=== PATIENT | female | born 1950 | race Caucasian/White ===

== ENCOUNTER 2019-05-31 17:35 | Emergency (ER) | payer MEDICARE, OTHER ==
[~2019-05-31] VITALS: Ht 154.9 cm; Wt 72.6 kg
[2019-05-31] MEDS ORDERED: XANAX 0.5 MG0.5 MG PO (17:47)
[2019-05-31] MEDS ORDERED: LEXAPRO20 MG PO (17:48)
[2019-05-31] MEDS ORDERED: BENTYL 20 MG TA20 M1 PO (17:48)
[2019-05-31] MEDS ORDERED: ESTRADIOL 1 MG T1 M1 PO (17:48)
[2019-05-31] MEDS ORDERED: HYDROCHLOROTH12.5 M1 PO (17:49)
[2019-05-31] MEDS ORDERED: LISINOPRIL40 MG PO (17:49)
[2019-05-31] MEDS ORDERED: SIMVASTATIN40 MG PO (17:49)
[2019-05-31] MEDS ORDERED: PROTONIX40 M1 PO (17:49)
[2019-05-31 18:20] VITALS: BP 130/80
== END 2019-05-31 18:22 | disposition home or self-care (01) ==
LOC: M.ERS 17:35
DX: H11.31 Conjunctival hemorrhage, right eye (principal); I10 Essential (primary) hypertension; Z90.710 Acquired absence of both cervix and uterus; Z90.12 Acquired absence of left breast and nipple